=== PATIENT | male | born 1960 | race Caucasian/White ===

== ENCOUNTER → 2024-02-26 08:43 | Outpatient (REF) | payer OTHER, SELFPAY | LOC: HWRAD 08:43 | PROVIDERS: ATTENDING PHYSICIAN Family Medicine | DX: Z87.891 Personal history of nicotine dependence (principal) | CPT/HCPCS: 71271 ==

== ENCOUNTER → 2025-03-15 08:56 | Outpatient (REF) | payer OTHER, SELFPAY | LOC: HWRAD 08:56 | PROVIDERS: ATTENDING PHYSICIAN Family Medicine | DX: Z87.891 Personal history of nicotine dependence (principal) | CPT/HCPCS: 71271 ==